=== PATIENT | female | born 1990 | race Two or more races ===

== ENCOUNTER 2016-08-29 12:10 | Emergency (ER) | payer OTHER ==
[2016-08-29 12:25] VITALS: BMI 31.9
--- NOTE | 2016-08-29 12:54 | PDOC ---
History of Present Illness - General History Source: Patient Exam Limitations: No Limitations - History of Present Illness Initial Comments: 08/29/16 13:03 The patient is a 26-year-old woman, [id number], currently 20 weeks , with a past medical history of asthma who presents to the emergency department for further evaluation of abdominal pain for the past few days. No trauma, fall. No new foods. She states that she has been experiencing intermittent left lower quadrant pain that radiates to her left lower back. Her pain is described as a pressure sensation with a rated 8/10 in severity. She also reports associated symptoms of nausea and one episode of vomiting. She does not provide any excasterbatng factors and states that she took Tylenol this morning, which did not provide much relief. She reports that her Ct Tech is Dr. Pat Lofton, who is currently away on maternity leave, therefore she is currently following up with Dr. Nell Rodriguez in the meantime. She has a scheduled appointment next month. She denies fever, chills, diaphoresis, generalized weakness. She denies chest pain, shortness of breath, cough She denies diarrhea, dysuria, hematuria, urinary frequency and urgency, flank pain, vaginal discharge/vaginal bleeding Allergies: Morphine Past Surgical History: Cholecystectomy Social History: No tobacco, ETOH and recreational drug use. Ct Tech: Dr. Pat Lofton <Brissa Lo - Last Filed: 08/29/16 13:58> - General History Source: Patient, Old Records Exam Limitations: No Limitations <Alethea Talbot - Last Filed: 08/29/16 16:39> - General Chief Complaint: Pain Stated Complaint: ABD PAIN Time Seen by Provider: 08/29/16 12:54 Past History <Brissa Lo - Last Filed: 08/29/16 13:58> - Past Medical History Asthma: Yes - Surgical History Cholecystectomy: Yes - Psycho/Social/Smoking Cessation Hx Suicidal Ideation: No Smoking History: Former smoker Have you smoked in the past 12 months: Yes If you are a former smoker, when did you quit?: 3 months ago Information on smoking cessation initiated: No <Alethea Talbot - Last Filed: 08/29/16 16:39> - Past Medical History Allergies/Adverse Reactions: Allergies Allergy/AdvReac Type Severity Reaction Status Date / Time morphine Allergy Verified 08/29/16 12:23 Home Medications: Ambulatory Orders NK [No Known Home Medication] 08/29/16 Review of Systems - Review of Systems Able to Perform ROS?: Yes Comments:: 08/29/16 13:03 GENERAL/CONSTITUTIONAL: No fever or chills. No weakness. HEAD, EYES, EARS, NOSE AND THROAT: No change in vision. No ear pain or discharge. No sore throat. CARDIOVASCULAR: No chest pain or shortness of breath. RESPIRATORY: No cough, wheezing, or hemoptysis. GASTROINTESTINAL: Yes: Abdominal Pain. Nausea. Vomiting x1. No diarrhea or constipation. GENITOURINARY: No dysuria, frequency, or change in urination. MUSCULOSKELETAL: No joint or muscle swelling or pain. No neck or back pain. SKIN: No rash NEUROLOGIC: No headache, vertigo, loss of consciousness, or change in strength/ sensation. ENDOCRINE: No increased thirst. No abnormal weight change. HEMATOLOGIC/LYMPHATIC: No anemia, easy bleeding, or history of blood clots. ALLERGIC/IMMUNOLOGIC: No hives or skin allergy. <Brissa Lo - Last Filed: 08/29/16 13:58> *Physical Exam - Vital Signs Last Vital Signs Temp Pulse Resp BP Pulse Ox 98.8 F 92 H 18 132/69 99 08/29/16 12:23 08/29/16 12:23 08/29/16 12:23 08/29/16 12:23 08/29/16 12:23 - Physical Exam Comments: 08/29/16 13:03 GENERAL: Awake, alert, and fully oriented, in no acute distress HEAD: No signs of trauma EYES: PERRLA, EOMI, sclera anicteric, conjunctiva clear ENT: Auricles normal inspection, hearing grossly normal, nares patent, oropharynx clear without exudates. Moist mucosa NECK: Normal ROM, supple, no lymphadenopathy, JVD, or masses LUNGS: Breath sounds equal, clear to auscultation bilaterally. No wheezes, and no crackles HEART: Regular rate and rhythm, normal S1 and S2, no murmurs, rubs or gallops ABDOMEN: Soft, there is some left lower quadrant tenderness without rebound or guarding. Normoactive bowel sounds. No masses /PELVIC: The cervix is mildly erythematous. The cervical os is closed. No cervical motion tenderness. No vaginal discharge cerival os is closed no cervical motion tendernss EXTREMITIES: Normal range of motion, no edema. No clubbing or cyanosis. No cords, erythema, or tenderness NEUROLOGICAL: Cranial nerves II through XII grossly intact. Normal speech, normal gait <Brissa Lo - Last Filed: 08/29/16 13:58> - Vital Signs Last Vital Signs Temp Pulse Resp BP Pulse Ox 98.8 F 92 H 18 132/69 99 08/29/16 12:23 08/29/16 12:23 08/29/16 12:23 08/29/16 12:23 08/29/16 12:23 <Alethea Talbot - Last Filed: 08/29/16 16:39> ED Treatment Course - LABORATORY CBC & Chemistry Diagram: 08/29/16 13:30 08/29/16 13:30 <Brissa Lo - Last Filed: 08/29/16 13:58> - LABORATORY CBC & Chemistry Diagram: 08/29/16 13:30 08/29/16 13:30 <Alethea Talbot - Last Filed: 08/29/16 16:39> Medical Decision Making - Medical Decision Making 08/29/16 15:00 26-year-old female approximately 20 weeks who presents to the emergency department with complaints of left lower quadrant pain radiating to the back. She has no vaginal bleeding or discharge. Focused bedside ultrasound shows a positive IUP with heart rate of 138. Differential diagnosis includes but is not limited to: UTI, round ligament pain, corpus luteum cyst. Plan: 1. Labs 2. Urine analysis 3. Tylenol for pain 4. Observe and reevaluate 08/29/16 16:38 Addendum: All labs were reviewed and are noted in the EMR. The patient is feeling improved. Will discharge home. I have informed the patient that she must follow-up with her Practice Advisor this week and return to the ED if her Sx persist , [id number] or new Sx arise. <Alethea Talbot - Last Filed: 08/29/16 16:39> *DC/Admit/Observation/Transfer - Attestations Scribe Attestion: 08/29/16 13:03 Documentation prepared by Brissa Lo, acting as medical insurance verifier for Alethea Talbot MD. <Brissa Lo - Last Filed: 08/29/16 13:58> - Discharge Dispostion Admit: No - Attestations Physician Attestion: 08/29/16 15:01 I, Dr. Alethea Talbot, attest that the scribes documentation that appears above has been prepared under my direction and personally reviewed by me in its entirety. I confirmed that the note above accurately reflects all work, treatment, procedures, and medical decision-making performed by me. <Alethea Talbot - Last Filed: 08/29/16 16:39> Diagnosis at time of Disposition: LLQ abdominal pain, , incidental - Discharge Dispostion Disposition: HOME Condition at time of disposition: Stable - Referrals Referrals: Kristina Valadez [Primary Care Provider] - - Patient Instructions Printed Discharge Instructions: DI for Abdominal Pain -- Early Additional Instructions: Follow-up with your wildlife policy professional physician this week. you may take tylenol as needed for the pain. Return to the ED if your symptoms persist, worsen or new symptoms arise.
[2016-08-29 14:17] LABS: BASOPHIL 0.2 % (0-2.0); EOSINOPHIL 1.2 % (0-4.5); MCH 30.1 pg (25.7-33.7); MCHC 33.8 g/dl (32.0-36.0); MEAN CELL VOLUME 89.1 fl (80-96); MEAN PLT VOLUME 10.1 fl (7.5-11.1); NEUTROPHILS 72.8 % (42.8-82.8); PLATELET COUNT 158 K/MM3 (134-434); RDW 13.3 % (11.6-15.6)
[2016-08-29 14:21] LABS: URINE APPEARANCE CLEAR; URINE BILIRUBIN NEGATIVE (NEGATIVE); URINE BLOOD NEGATIVE (NEGATIVE); URINE COLOR YELLOW; URINE GLUCOSE (UA) NEGATIVE (NEGATIVE); URINE KETONE TRACE (NEGATIVE); URINE LEUK ESTERASE NEGATIVE (NEGATIVE); URINE NITRITE NEGATIVE (NEGATIVE); URINE PROTEIN NEGATIVE (NEGATIVE); URINE UROBILINOGEN NEGATIVE E.U./dl (0.2-1.0)
[2016-08-29 16:34] LABS: ALBUMIN 3.3 g/dl (3.4-5.0); ALK PHOS 58 U/L (45-117); ANION GAP 12 (8-16); BILIRUBIN,TOTAL 0.2 mg/dL (0.2-1.0); CALCIUM 8.6 mg/dL (8.5-10.1); CO2 19 mmol/L (21-32); CREATININE 0.5 mg/dL (0.55-1.02); GLUCOSE,RANDOM 77 mg/dL (74-106); SGOT/AST 18 U/L (15-37); SGPT/ALT 32 U/L (12-78); TOT PROT 6.9 g/dl (6.4-8.2)
[2016-08-29 17:34] VITALS: BP 122/76; PULSE 111; TEMP 98.1
== END 2016-08-29 17:00 | disposition home or self-care (01) ==
LOC: JER 12:10
DX: O99.89 Other specified diseases and conditions complicating pregnancy, childbirth and the puerperium (principal); Z3A.20 20 weeks gestation of pregnancy
CPT/HCPCS: 36415; 80053; 81003; 83690; 84703; 85025; 99282-25

== ENCOUNTER 2016-12-29 08:34 | Inpatient (IN) | payer OTHER ==
[2016-12-29] MEDS ORDERED: OXYTOCIN 20 UNITS in 0.9% NS 1,000 ML IV SCH (08:45)
[2016-12-29] MEDS: ACETAMINOPHEN 325 MG TABLET (FP) PO PRN ×2 (09:25→14:38)
[2016-12-29] MEDS: IBUPROFEN 600 MG TABLET (FP) PO PRN ×2 (09:25→14:37)
[2016-12-29 10:24] VITALS: BMI 34.4
[2016-12-29] MEDS ORDERED: METHYLERGONOVINE MALEATE 0.2 MG/1 ML AMP IM PRN (10:29)
[2016-12-29] MEDS ORDERED: BENZOCAINE 28 GM HEMORRHOIDAL OINTMENT TP PRN (10:29)
[2016-12-29] MEDS ORDERED: WITCH HAZEL 50% (TUCKS) 40 PAD/JAR PAD TP PRN (10:29)
[2016-12-29] MEDS ORDERED: BENZOCAINE 20% 57 GM BOTTLE TP PRN (10:29)
[2016-12-29] MEDS ORDERED: BISACODYL 10 MG SUPP.RECT RC PRN (10:29)
--- NOTE | 2016-12-29 10:40 | HP ---
Past Medical History - Primary Care Physician PCP:: Nell Lanza - Admission Chief Complaint: 26 yrs , 37.1/7 weeks iup s/p delivery in [facility] at 8.35 am brought with placenta in utero. History of Present Illness: Onset LP since 12 mid night , strong since 7.00Am, she called for ambulence at 740am she dievered Baby Boy alive at 8.35 AM in the ambulence , [place] assigned in hosp 02/18 she divered placenta at 8.54 AM in L&D Care a 2, [facility] , pt non compliant last visited the clinic on 10/25/16 Gbs unknown work up : A Pos, Hbsag neg, Rpr nr, Rubella pos , Quantiferon neg , Hiv neg 1 hr GTT 99, gc/ct neg , Pap 06/2016 NILM pt was recommended aspirin 81 mg due to h/o preclempsia in past pregn, pt did not take. NT screen, Modified Sequential & Materna T-21 neg She was recommended inj [facility] for prevention of PTL , she refused MFM referral was done , growth sono noted Lingual cyst noed prentaly on us until last sono done on 12/15/16 35.1/weeks History Source: Patient, Medical Record Limitations to Obtaining History: No Limitations - Past Medical History Cardiovascular: No: HTN Pulmonary: Yes: Asthma (rx with inhaler prn) Gastrointestinal: Yes: Hemorrhoids. No: Constipation, GERD Hepatobiliary: Yes: Choledocholithiasis (cholecystectomy done) Renal/: No: UTI Reproductive: Yes: Other (h/o abn pap in past 06/2016 pap NILM) ...: 5 ...Para: 3 ...Term: 0 ...: 3 ...Spon : 1 ...Induced : 0 ...Multiple Gestation: 0 ...LMP: 04/13/16 ... Weeks Gestation by Dates: 37.1 ...EDC by Dates: 01/18/17 ...EDC by Sono: 01/18/17 Additional OB History: G1 03/15/2007 32 wks 4'14" Preclampsia , induced Ab [facility] G2 10/24/2008 32 wks 4'15" labor [facility] G3 11/24/2011 34 or 36 wks 7lbs h/o GDM [facility] G4 03/2012 Sp Ab Heme/Onc: Yes: Anemia Infectious Disease: Yes: STD's (h/o chlamydia during 1st pregn h/o pos HPV h/o trichomoniasis). No: HIV, Tuberculosis Endocrine: Yes: Other (h/o GDM during last pregn) - Past Surgical History Past Surgical History: Yes: Cholecystectomy Hx Myomectomy: No Hx Transabdominal Cerclage: No - Smoking History Smoking history: Former smoker Have you smoked in the past 12 months: Yes Aproximately how many cigarettes per day: 10 If you are a former smoker, when did you quit?: 06/2016 - Alcohol/Substance Use Hx Alcohol Use: No History of Substance Use: reports: None Home Medications - Allergies Allergies/Adverse Reactions: Allergies Allergy/AdvReac Type Severity Reaction Status Date / Time morphine Allergy Severe Verified 11/24/16 23:57 hot sauce Allergy Intermediate Itching Uncoded 12/29/16 12:21 - Home Medications Home Medications: Ambulatory Orders Vit/Iron Fumarate/FA [ Tablet] 1 tab PO DAILY 12/29/16 Physical Exam - Maternity Vital Signs: Vital Signs Temperature 98.6 F 12/29/16 08:34 Pulse Rate 66 12/29/16 08:34 Respiratory Rate 18 12/29/16 08:34 Blood Pressure 143/80 12/29/16 08:34 O2 Sat by Pulse Oximetry (%) Constitutional: Yes: Well Nourished, No Distress Eyes: Yes: WNL HENT: Yes: WNL, Normocephalic Neck: Yes: WNL, Trachea Midline Cardiovascular: Yes: WNL, Regular Rate and Rhythm Lungs: Clear to auscultation Breast(s): Yes: WNL - Abdominal Exam/OB Fundal Height: 18 (s/p delivery fetus & placent adelivered ) - Vaginal Exam/OB Vaginal Bleediing: Yes (pp bleeding moderate , blood cllots removed from uterus by MEU Perineum vagina & cervix , uterus intact.. No lacerations noted) - Physical Exam Musculoskeletal: Yes: WNL Extremities: Yes: WNL. No: Calf Tenderness Edema: Yes Edema: LLE: 1+, RLE: 1+ Integumentary: Yes: Tattoos Deep Tendon Reflex Grade: Normal +2 Psychiatric: Yes: WNL, Alert - Labs Lab Results: Laboratory Tests 12/29/16 12/29/16 12/29/16 10:25 10:25 10:25 WBC 11.4 H Hgb 13.4 Hct 40.9 Plt Count 127 L Neutrophils % 84.8 H Lymphocytes % 11.3 D INR 0.92 PTT (Actin FS) 24.0 L Sodium 140 Potassium 4.0 Chloride 109 H Creatinine 0.5 L Random Glucose 76 RPR Titer HIV 1&2 Antibody Screen HIV P24 Antigen 12/29/16 12/29/16 10:25 11:15 WBC Hgb Hct Plt Count Neutrophils % Lymphocytes % INR PTT (Actin FS) Sodium Potassium Chloride Creatinine Random Glucose RPR Titer Nonreactive HIV 1&2 Antibody Screen Negative HIV P24 Antigen Negative Problem List - Problems (1) 37 or more weeks gestation of Code(s): EFX9254 - (2) Normal vaginal delivery Code(s): O80 - ENCOUNTER FOR FULL-TERM UNCOMPLICATED DELIVERY Assessment/Plan 26 years , 37.1 weeks, GBS unknown , delivery in [facility] placenta delivey in L&D ebl witnessed 250 ml Plan pp care Inform nursery to show the to product evangelist
[2016-12-29 11:06] LABS: BASOPHIL 0.2 % (0-2.0); EOSINOPHIL 0.2 % (0-4.5); MCH 28.4 pg (25.7-33.7); MCHC 32.8 g/dl (32.0-36.0); MEAN CELL VOLUME 86.7 fl (80-96); MEAN PLT VOLUME 10.8 fl (7.5-11.1); NEUTROPHILS 84.8 % (42.8-82.8); PLATELET COUNT 127 K/MM3 (134-434); RDW 15.2 % (11.6-15.6); WHITE BLOOD COUNT 11.4 K/mm3 (4.0-10.0)
--- NOTE | 2016-12-29 11:17 | PN ---
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
[2016-12-29 11:25] LABS: INR 0.92 (0.82-1.09); PROTHROMBIN TIME (PATIENT) 10.1 SEC (9.98-11.88)
[2016-12-29 11:27] LABS: ANION GAP 10 (8-16); CALCIUM 9.1 mg/dL (8.5-10.1); CO2 21 mmol/L (21-32); CREATININE 0.5 mg/dL (0.55-1.02); GLUCOSE,RANDOM 76 mg/dL (74-106)
[2016-12-29 12:35] LABS: HIV 1 & 2 AB NEGATIVE; HIV 1 AGp24 NEGATIVE
[2016-12-29 13:41] LABS: URINE MARIJUANA THC NEGATIVE ng/ml (CUTOFF=50)
[2016-12-29] MEDS ORDERED: OXYCODONE/APAP 5/325MG COMBO TABLET PO PRN (16:01)
[2016-12-29] MEDS ORDERED: IBUPROFEN 600 MG TABLET (FP) PO ONE (16:30)
[2016-12-29] MEDS: FERROUS SO4 325 MG TABLET (FP) PO SCH (17:04)
[2016-12-29] MEDS ORDERED: ACETAMINOPHEN 325 MG TABLET (FP) PO ONE (17:45)
[2016-12-30] MEDS: ACETAMINOPHEN 325 MG TABLET (FP) PO PRN ×2 (06:31→22:00)
[2016-12-30] MEDS: IBUPROFEN 600 MG TABLET (FP) PO PRN ×3 (06:32→21:59)
[2016-12-30 08:01] LABS: BASOPHIL 0.3 % (0-2.0); EOSINOPHIL 1.4 % (0-4.5); MCHC 33.6 g/dl (32.0-36.0); MEAN CELL VOLUME 86.6 fl (80-96); MEAN PLT VOLUME 10.9 fl (7.5-11.1); NEUTROPHILS 63.8 % (42.8-82.8); PLATELET COUNT 112 K/MM3 (134-434); RDW 15.1 % (11.6-15.6); WHITE BLOOD COUNT 7.7 K/mm3 (4.0-10.0)
--- NOTE | 2016-12-30 08:20 | PN ---
Progress Note (short form) - Note Progress Note: ppd 1 c/o cramps ,no excess vaginal bleeding CBC, BMP 12/30/16 06:00 12/29/16 10:25 Last Vital Signs Temp Pulse Resp BP Pulse Ox 98 F 65 20 111/58 100 12/30/16 07:53 12/30/16 07:53 12/30/16 07:53 12/30/16 07:53 12/29/16 09:55 abdomen soft, non tender , no cva uterus firm, non tender lochia mild plan ambulate,,d/c home in am
[2016-12-30] MEDS: FERROUS SO4 325 MG TABLET (FP) PO SCH ×2 (08:31→17:12)
[2016-12-30] MEDS: PRENATAL VITAMINS W/ FOLIC ACID TABLET (FP) PO SCH (09:32)
[2016-12-30] MEDS ORDERED: DIPHTH,PERTUSS(ACELL),TET 0.5 ML DISP.SYRIN IM ONE (14:00)
[2016-12-30] MEDS ORDERED: PNEUMOC 13-VAL CONJ-DIP CRM/PF 0.5 ML DISP.SYRIN IM ONE (14:00)
--- NOTE | 2016-12-30 18:10 | DS ---
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 bottle feeding) Musculoskeletal: Yes: WNL Extremities: Yes: WNL Edema: Yes Edema: LLE: Trace, RLE: Trace Integumentary: Yes: WNL, Tattoos Neurological: Yes: WNL ...Motor Strength: WNL Psychiatric: Yes: WNL, Alert, Oriented Labs: CBC, BMP 12/30/16 06:00 12/29/16 10:25 Laboratory Tests 12/29/16 12:30 Opiates Screen Negative Methadone Screen Negative Barbiturate Screen Negative Phencyclidine Screen Negative Ur Amphetamines Screen Negative MDMA (Ecstasy) Screen Negative Benzodiazepines Screen Negative Cocaine Screen Negative U Marijuana (THC) Screen Negative Delivery - Delivery Vaginal Delivery: No Problems, Spontaneous (delivery of fetus in ambulence by EMT) Type of Anesthesia: None Episiotomy/Laceration: None EBL (cc): 300 Delivery, Single - Stages of Labor Date 1st Stage Initiatied: 12/29/16 Time 1st Stage Initiated: 00:00 Date of Delivery: 12/29/16 Time of Delivery: 08:35 Time Placenta Delivered: 08:54 Placenta: Yes: Spontaneous, Uterine Exploration - Condition of Infant 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[employer] Services Present: No Infant Gender: Male Weight: 5 lb 15 oz Total Hours ROM (Hrs/Mins): 9 minutes - Home Delivery on Admit Total Score: 10 1 Minute Total Score: 9 (given by EMT) 5 Minutes Total Score: 9 (given by EMT, i) - Feeding Plan Initial Plan: Elected not to breastfeed exclusively throughout hospitalization Remarks - Remarks Remarks: 26 yrs , 37.1 weeks s/p delivery in ambulance , brought in l&D with placenta in uterus delivered in L&D GBS unknown pt noncompliant pp course unevebtful Discharge Summary Reason For Visit: LABOR ADMIT Current Active Problems 37 or more weeks gestation of (Acute) Normal vaginal delivery (Acute) Condition: Stable - Instructions Diet, Activity, Other Instructions: Post Instructions DIET: Continue good diet high in protein, calcium, and iron rich foods. Drink at least eight (8) glasses of water daily in addition to other fluids. ct Regular diet MEDICATIONS: Continue vitamins and iron as previously directed. Motrin and Tylenol may be taken for minor discomfort. ACTIVITY: Mild to moderate exercise may be started in two (2) weeks. Take frequent rest periods. Resume normal activity after six (6) week check up. WOUND CARE OF OPERATIVE SITE: Continue use of perineal bottle until vaginal discharge stops. Keep area clean. Shower daily. Keep abdominal wound dry. Report any drainage or redness to physician. Tub baths, tampons and douches are not permitted for [address] Breast feeding & or Bottle feeding BREAST CARE: (For those that are not breast feeding): If engorgement occurs: Wear tight fitting bra. Take Tylenol or Motrin for pain. Apply cold packs (ice in bags to each breast ) FAMILY PLANNING: There are many control alternatives to pursue and they should be discussed at your first office visit. You may resume sexual activity after your six (6) week check up. (Remember, breast feeding is not a contraceptive) NEXT PHYSICIAN APPOINTMENT: Be certain to call for a six (6) week appointment, unless otherwise directed. Call Clinic or got to Emergency Dept if you have any of the following: Heavy vaginal bleeding Painful urination Leg pain Unusual odor noted to vaginal bleeding High fever Red streaking noted on breast Referrals: Nell Lanza MD [Staff Physician] - Disposition: HOME - Home Medications Comprehensive Discharge Medication List: Ambulatory Orders Acetaminophen [Tylenol .Regular Strength -] 650 mg PO Q3H PRN #0 tablet Ferrous Sulfate [Feosol] 325 mg PO BIDWM tab 12/29/16 Ibuprofen [Motrin -] 200 mg PO Q4H PRN #0 tablet 12/29/16 Vit/Iron Fumarate/FA [ Tablet] 1 tab PO DAILY 12/29/16 Vitamins (Sjr) - 1 tab PO DAILY tablet 12/29/16
[2016-12-30] MEDS ORDERED: SENNOSIDES/DOCUSATE COMBO (SENNA PLUS) TABLET (UD) PO PRN (22:00)
[2016-12-31] MEDS: IBUPROFEN 600 MG TABLET (FP) PO PRN ×2 (03:46→08:14)
[2016-12-31] MEDS: ACETAMINOPHEN 325 MG TABLET (FP) PO PRN ×2 (03:47→08:14)
[2016-12-31] MEDS: FERROUS SO4 325 MG TABLET (FP) PO SCH (08:13)
[2016-12-31] MEDS: PRENATAL VITAMINS W/ FOLIC ACID TABLET (FP) PO SCH (09:23)
[2016-12-31 12:23] VITALS: BP 110/70; PULSE 71; TEMP 98.2
== END 2016-12-31 11:40 | disposition home or self-care (01) | DRG 560 ==
LOC: JLDR 08:34 → J3W 12:37
PROVIDERS: ADMIT Obstetrics & Gynecology; ATTEND Obstetrics & Gynecology
PROC: 10E0XZZ Delivery of Products of Conception, External Approach (ICD-10-PCS; principal; 2016-12-29)
DX: Z39.0 Encounter for care and examination of mother immediately after delivery (principal)
CPT/HCPCS: 36415; 59409; 80048; 80307; 85025; 85610; 85730; 86593; 86850; 86900; 86901; 87389; 90670; 90715

== ENCOUNTER 2017-04-09 15:59 | Emergency (ER) | payer OTHER ==
[2017-04-09 16:30] VITALS: BP 116/75; PULSE 79; TEMP 98.4; BMI 31.6
[2017-04-09] MEDS ORDERED: morphine CARPU-JECT 4 MG/1 ML DISP.SYRIN IVPUSH ONE (16:55)
[2017-04-09] MEDS ORDERED: morphine CARPU-JECT 8 MG/1 ML DISP.SYRIN ONE (17:18)
[2017-04-09 17:28] LABS: BASOPHIL 0.6 % (0-2.0); EOSINOPHIL 3.1 % (0-4.5); MCH 29.2 pg (25.7-33.7); MCHC 33.3 g/dl (32.0-36.0); MEAN CELL VOLUME 87.5 fl (80-96); MEAN PLT VOLUME 10.1 fl (7.5-11.1); NEUTROPHILS 70.8 % (42.8-82.8); PLATELET COUNT 213 K/MM3 (134-434); RDW 13.8 % (11.6-15.6); WHITE BLOOD COUNT 8.3 K/mm3 (4.0-10.0)
[2017-04-09 17:51] LABS: ALBUMIN 3.5 g/dl (3.4-5.0); ALK PHOS 65 U/L (45-117); ANION GAP 5 (8-16); BILIRUBIN,TOTAL 0.4 mg/dL (0.2-1.0); CALCIUM 8.8 mg/dL (8.5-10.1); CO2 28 mmol/L (21-32); CREATININE 0.9 mg/dL (0.55-1.02); GLUCOSE,RANDOM 83 mg/dL (74-106); SGPT/ALT 33 U/L (12-78); TOT PROT 7.1 g/dl (6.4-8.2)
[2017-04-09 17:54] LABS: SGOT/AST 27 U/L (15-37)
--- NOTE | 2017-04-09 18:19 | PDOC ---
History of Present Illness - General Chief Complaint: Injury Stated Complaint: FALL Time Seen by Provider: 04/09/17 16:29 - History of Present Illness Initial Comments: 04/09/17 18:14 The patient is a 27 year old female with a history of asthma who presents for evaluation of right hip pain following a fall down stairs. The patient reports that she slipped on steps outside her apartment and fell down 14 steps with immediate pain to her right hip and inability to ambulate at the scene. She reports head trauma, but denies any LOC or headache currently. She reports only severe pain in her right hip with burning radiation down her right leg. She denies fevers, chills, SOB, chest pain, abdominal pain, or changes with urination or bowel movements. She denies any numbness, weakness, or tingling in her extremities. Past History - Past Medical History Allergies/Adverse Reactions: Allergies Allergy/AdvReac Type Severity Reaction Status Date / Time morphine Allergy Severe Verified 04/09/17 16:07 hot sauce Allergy Intermediate Itching Uncoded 04/09/17 16:07 Home Medications: Ambulatory Orders Albuterol Sulfate Inhaler - [Ventolin Hfa Inhaler -] 1 - 2 inh PO Q4H 04/09/17 Ibuprofen 600 mg PO QID PRN #24 tablet MDD 4 Tab 04/09/17 Asthma: Yes Cancer: No Cardiac Disorders: No Diabetes: No HTN: No Seizures: No Thyroid Disease: No - Surgical History Cholecystectomy: Yes - Reproductive History (#): 4 Para: 3 - Suicide/Smoking/Psychosocial Hx Smoking History: Former smoker Have you smoked in the past 12 months: Yes Number of Cigarettes Smoked Daily: 10 If you are a former smoker, when did you quit?: 06/2016 Information on smoking cessation initiated: No Hx Alcohol Use: No Drug/Substance Use Hx: No Substance Use Type: None Hx Substance Use Treatment: No Review of Systems - Review of Systems Comments:: 04/09/17 18:17 Constitutional: No fevers, chills, fatigue, malaise HEENT: No Rhinorrhea, nasal congestion, Cardiovascular: No chest pain, syncope, palpitations, lightheadedness Respiratory: No Cough, SOB, Hemoptysis, Gastrointestinal: No Abdominal pain, Nausea, Vomiting, Constipation, Diarrhea, Genitourinary: No Dysuria, Frequency, Urgency, Hesitancy, Hematuria, Flank pain Musculoskeletal: Right hip pain. No Myalgia, arthralgia Skin: No rashes, bruising, pallor Neurologic: No Headache, Dizziness, Numbness, Weakness, or Tingling *Physical Exam - Vital Signs Last Vital Signs Temp Pulse Resp BP Pulse Ox 98.4 F 79 18 116/75 100 04/09/17 16:07 04/09/17 16:07 04/09/17 16:07 04/09/17 16:07 04/09/17 16:07 - Physical Exam Comments: 04/09/17 18:18 General Appearance: Nourished. No Apparent Distress HEENT: EOMI, IQ. No Pharyngeal Erythema, Tonsillar Exudate, Tonsillar Erythema Neck: No Cervical Lymphadenopathy Respiratory/Chest: Lungs Clear, Normal Breath Sounds. No Crackles, Rales, Rhonchi, Wheezing Cardiovascular: Regular Rhythm, Regular Rate. No Murmur, Gallops, Rubs Gastrointestinal/Abdominal: Normal Bowel Sounds, Soft. No Guarding, Rebound, Tenderness Musculoskeletal: No CVA Tenderness Extremity: Tenderness to palpation of the right hip with possible deformity. Sensation to light touch and temperature intact distal to the injury. 2+ DP pulses bilaterally. Reduced range of motion or the right hip and leg secondary to pain. Normal Capillary Refill Integumentary: Normal Color, Dry, Warm Neurologic: research environmental scientist II-XII NML intact, Fully Oriented, Alert, Normal Mood/Affect, Normal Response, ED Treatment Course - LABORATORY CBC & Chemistry Diagram: 04/09/17 17:10 04/09/17 17:10 - ADDITIONAL ORDERS Additional order review: Laboratory Results 04/09/17 04/09/17 17:10 17:10 Sodium 138 Potassium 3.9 Chloride 105 Carbon Dioxide 28 D Anion Gap 5 L BUN 9 D Creatinine 0.9 D Creat Clearance w eGFR > 60 Random Glucose 83 Calcium 8.8 Total Bilirubin 0.4 D AST 27 D ALT 33 Alkaline Phosphatase 65 Total Protein 7.1 Albumin 3.5 Serum , Qual Negative 04/09/17 17:10 RBC 4.29 MCV 87.5 MCHC 33.3 RDW 13.8 MPV 10.1 Neutrophils % 70.8 Lymphocytes % 18.5 D Monocytes % 7.0 Eosinophils % 3.1 D Basophils % 0.6 - RADIOLOGY Radiology Studies Ordered: Category Date Time Status HIP & PELVIS-RIGHT [RAD] Stat Radiology 10/29/17 16:57 Ordered - Medications Given in the ED: ED Medications Discontinued Medications Generic Name Dose Route Start Last Admin Trade Name Fredrickq PRN Reason Stop Dose Admin Morphine Sulfate 4 mg 04/09/17 16:55 04/09/17 17:15 Morphine Injection - IVPUSH 04/09/17 16:56 4 mg ONCE ONE Administration Medical Decision Making - Medical Decision Making 04/09/17 18:19 The patient is a 27 year old female with a history of asthma who presents for evaluation of right hip pain following a fall down stairs. Differential includes but is not limited to: Dislocation, fracture, contusion, ligamentous or tendinous injury. Given the patient's severe pain and reduced range of motion, we are concerned for a right hip dislocation. We will obtain plain films to evaluate further. We will also send a cbc, cmp, and serum . We will treat her pain with morphine and continue to monitor and reassess. 04/09/17 18:57 cbc, cmp, serum are negative and unremarkable. Plain films do not demonstrate any signs of acute fracture or dislocation as preliminarily read by ED physician pending official radiology read in the morning. We will treat the patient's pain with toradol and reassess. The patient's pain is likely due to a bony contusion. *DC/Admit/Observation/Transfer Diagnosis at time of Disposition: Sprain of right hip Qualifiers: Encounter type: initial encounter Qualified Code(s): S73.101A - Unspecified sprain of right hip, initial encounter - Discharge Dispostion Disposition: HOME Condition at time of disposition: Good - Prescriptions Prescriptions: Ibuprofen 600 mg PO QID PRN #24 tablet MDD 4 Tab PRN Reason: Moderate Pain - Referrals Referrals: Kristina Valadez [Primary Care Provider] - - Patient Instructions Printed Discharge Instructions: How to Prevent Falls Additional Instructions: Please return to ED if you experience nausea/vomiting, headache, fatigue, lightheadedness, vision changes. Please take pain medication as prescribed. Follow up with Primary Care Provider if pain persists for weeks. - Post Discharge Activity Forms/Work/School Notes: Back to Work
--- NOTE | 2017-04-09 18:51 | PDOC ---
Attending Attestation - Resident Resident Name: Marvin Dockeryel - ED Attending Attestation I have performed the following: I have examined & evaluated the patient, The case was reviewed & discussed with the resident, I agree w/resident's findings & plan, Exceptions are as noted - HPI HPI: 04/09/17 18:51 27 yo female fell down 14 steps hitting her rt hip and back. No LOC. Pt is alert and conversant, - Physicial Exam PE: 04/09/17 18:52 WNWD 27 yo female BIBA with rt hip pain s/p falling and sliding sown 14 steps at home HEENT no scalp laceration,no scalp hematoma ,eyes zack eomi, throat no exudates,nose no rhinorrhea neck no cervical vertebral tenderness lungs cta b/l cvs [id number] abd no rebound,no guarding no splenic tenderness rt hip tendereness, no laceration,no abrasions neuro axox3,no focal neuro deficits 04/09/17 19:07 - Medical Decision Making 04/10/17 03:31 xrays negative for fracture or dislocation,pt ambulatory and discharged home
[2017-04-09] MEDS ORDERED: KETOROLAC TROMETHAMINE 30 MG/1 ML VIAL IVPUSH ONE (18:56)
[2017-04-09] MEDS ORDERED: KETOROLAC TROMETHAMINE 30 MG/1 ML VIAL ONE (19:22)
--- NOTE | 2017-04-09 20:39 | PDOC ---
*Physical Exam - Vital Signs Last Vital Signs Temp Pulse Resp BP Pulse Ox 98.4 F 79 18 116/75 100 04/09/17 16:07 04/09/17 16:07 04/09/17 16:07 04/09/17 16:07 04/09/17 16:07 - Physical Exam Comments: 04/09/17 20:42 General Appearance: Nourished. No Apparent Distress HEENT: EOMI, QI. No Pharyngeal Erythema, Tonsillar Exudate, Tonsillar Erythema Neck: No Cervical Lymphadenopathy Respiratory/Chest: Lungs Clear, Normal Breath Sounds. No Crackles, Rales, Rhonchi, Wheezing Cardiovascular: Regular Rhythm, Regular Rate. No Murmur, Gallops, Rubs Gastrointestinal/Abdominal: Normal Bowel Sounds, Soft. No Guarding, Rebound, Tenderness Musculoskeletal: No CVA Tenderness Extremity: Right hip ttp. No bony deformity. Sensation to light touch and temperature intact distal to the injury. 2+ dorsal pedal and posterior tibial pulses intact and symmetri bilaterally. Reduced range of motion or the right hip and leg secondary to pain. 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 NML intact, Fully Oriented, Alert, Normal Mood/Affect, Normal Response, ED Treatment Course - LABORATORY CBC & Chemistry Diagram: 04/09/17 17:10 04/09/17 17:10 - ADDITIONAL ORDERS Additional order review: Laboratory Results 04/09/17 04/09/17 17:10 17:10 Sodium 138 Potassium 3.9 Chloride 105 Carbon Dioxide 28 D Anion Gap 5 L BUN 9 D Creatinine 0.9 D Creat Clearance w eGFR > 60 Random Glucose 83 Calcium 8.8 Total Bilirubin 0.4 D AST 27 D ALT 33 Alkaline Phosphatase 65 Total Protein 7.1 Albumin 3.5 Serum , Qual Negative 04/09/17 17:10 RBC 4.29 MCV 87.5 MCHC 33.3 RDW 13.8 MPV 10.1 Neutrophils % 70.8 Lymphocytes % 18.5 D Monocytes % 7.0 Eosinophils % 3.1 D Basophils % 0.6 - Medications Given in the ED: ED Medications Discontinued Medications Generic Name Dose Route Start Last Admin Trade Name Freq PRN Reason Stop Dose Admin Ketorolac Tromethamine 30 mg 04/09/17 18:56 04/09/17 19:29 Toradol Injection - IVPUSH 04/09/17 18:57 30 mg ONCE ONE Administration Morphine Sulfate 4 mg 04/09/17 16:55 04/09/17 17:15 Morphine Injection - IVPUSH 04/09/17 16:56 4 mg ONCE ONE Administration Medical Decision Making - Medical Decision Making 04/09/17 20:39 Received handoff from 27 yo F with h/o of asthma who with R hip pain following mechanical fall down stairs. She now endorses severe pain in right hip with burning radiation down right leg. No other associated symptoms. Physical exam unremarkable with no evidence of neurovascular compromise or bony deformity . ED Course: 04/09/17 20:43 R Hip and Pelvis RAD: No acute fracture or dislocation Patient given Morphine 8 mg and Toradol 30 mg Reasses Patient ambulating w/out difficulty and stable D/C. *DC/Admit/Observation/Transfer Diagnosis at time of Disposition: Sprain of right hip Qualifiers: Encounter type: initial encounter Qualified Code(s): S73.101A - Unspecified sprain of right hip, initial encounter; S73.101A - Unspecified sprain of right hip, initial encounter - Discharge Dispostion Disposition: HOME Condition at time of disposition: Stable Admit: No - Prescriptions Prescriptions: Ibuprofen 600 mg PO QID PRN #24 tablet MDD 4 Tab PRN Reason: Moderate Pain - Patient Instructions Printed Discharge Instructions: How to Prevent Falls Additional Instructions: Please return to ED if you experience nausea/vomiting, headache, fatigue, lightheadedness, vision changes. Please take pain medication as prescribed. Follow up with Primary Care Provider if pain persists for weeks. - Post Discharge Activity Forms/Work/School Notes: Back to Work - Attestations Physician Attestion: 04/09/17 20:49 I attest to the information provided in this note.
== END 2017-04-09 20:57 | disposition home or self-care (01) ==
LOC: JER 15:59
PROC: 3E033NZ Introduction of Analgesics, Hypnotics, Sedatives into Peripheral Vein, Percutaneous Approach (ICD-10-PCS; principal; 2017-04-09)
PROC: 3E0333Z Introduction of Anti-inflammatory into Peripheral Vein, Percutaneous Approach (ICD-10-PCS; 2017-04-09)
DX: S73.191A Other sprain of right hip, initial encounter (principal); W10.8XXA Fall (on) (from) other stairs and steps, initial encounter; Y93.89 Activity, other specified; Y92.038 Other place in apartment as the place of occurrence of the external cause; J45.909 Unspecified asthma, uncomplicated; Z87.891 Personal history of nicotine dependence
CPT/HCPCS: 36415; 73523-TC; 80053; 84703; 85025; 96374; 96375; 99283-25

== ENCOUNTER 2019-01-10 23:48 | Inpatient (IN) | payer OTHER | END 2019-01-12 14:37 | disposition home or self-care (01) | LOC: JER 23:48 → JERBED 01-11 05:45 → J5S 01-11 10:55 ==

== ENCOUNTER 2019-07-15 12:20 | Emergency (ER) | payer OTHER ==
[2019-07-15 12:28] VITALS: BP 100/66; PULSE 70; TEMP 98.7; BMI 29.1
--- NOTE | 2019-07-15 13:57 | PDOC ---
History of Present Illness - General Chief Complaint: Cold Symptoms Stated Complaint: Cold Symptoms Time Seen by Provider: 07/15/19 13:48 - History of Present Illness Initial Comments: 07/15/19 13:53 30-year-old female without comorbidities presents for evaluation of flulike symptoms and a positive flu contact at home x1 day Past History - Past Medical History Allergies/Adverse Reactions: Allergies Allergy/AdvReac Type Severity Reaction Status Date / Time morphine Allergy Severe Verified 07/15/19 12:25 hot sauce Allergy Intermediate Itching Uncoded 07/15/19 12:25 Home Medications: Ambulatory Orders Albuterol Sulfate Inhaler - [Ventolin HFA Inhaler -] 1 - 2 inh PO Q4H 04/09/17 Doxycycline Hyclate 100 mg PO BID 20 Days #40 capsule 01/12/19 Sumatriptan Succinate [Imitrex -] 100 mg PO TID PRN #90 tablet 01/12/19 Topiramate [Topamax -] 25 mg PO BID #60 tablet 01/12/19 Oseltamivir Phosphate [Tamiflu] 75 mg PO BID #10 capsule 07/15/19 Anemia: Yes Asthma: Yes Cancer: No Cardiac Disorders: No CVA: No COPD: No CHF: No Dementia: No Diabetes: No GI Disorders: No Disorders: No HTN: No Hypercholesterolemia: No Liver Disease: No Seizures: No Thyroid Disease: No - Surgical History Abdominal Surgery: No Appendectomy: No Cardiac Surgery: No Cholecystectomy: Yes Lung Surgery: No Neurologic Surgery: No Orthopedic Surgery: No - Reproductive History (#): 4 Para: 3 - Psycho Social/Smoking Cessation Hx Smoking History: Current every day smoker Have you smoked in the past 12 months: Yes Number of Cigarettes Smoked Daily: 10 If you are a former smoker, when did you quit?: 06/2016 Information on smoking cessation initiated: No 'Breaking Loose' booklet given: 01/11/19 Hx Alcohol Use: No Drug/Substance Use Hx: No Substance Use Type: None Hx Substance Use Treatment: No Review of Systems - Review of Systems Constitutional: Yes: Fever ABD/GI: Yes: Diarrhea, Nausea, Vomiting *Physical Exam - Vital Signs Last Vital Signs Temp Pulse Resp BP Pulse Ox 98.7 F 70 16 100/66 100 07/15/19 12:25 07/15/19 12:25 07/15/19 12:25 07/15/19 12:25 07/15/19 12:25 - Physical Exam 07/15/19 13:53 GENERAL: The patient is awake, alert, and fully oriented, in no acute distress. HEAD: Normal with no signs of trauma. EYES: sclera anicteric, conjunctiva clear. ENT: Ears normal tympanic membranes normal oropharynx clear uvula midline NECK: Normal range of motion LUNGS: Breath sounds equal, clear to auscultation bilaterally. No wheezes, and no crackles. HEART: S1 and S2 without murmur, rub or gallop. ABDOMEN: Soft, nontender, normoactive bowel sounds. No guarding, no rebound. No masses. EXTREMITIES: Normal range of motion, no edema. No clubbing or cyanosis. No cords, erythema, or tenderness. NEUROLOGICAL: Cranial nerves II through XII grossly intact. PSYCH: Normal mood, normal affect. SKIN: Warm, Dry, normal turgor, no rashes or lesions noted. Medical Decision Making - Medical Decision Making 07/15/19 13:54 We will treat based on positive sick contact Discharge - Discharge Information Problems reviewed: Yes Clinical Impression/Diagnosis: Influenza-like illness Condition: Stable Disposition: HOME - Admission No - Additional Discharge Information Prescriptions: Oseltamivir Phosphate [Tamiflu] 75 mg PO BID #10 capsule - Follow up/Referral Referrals: Carmela William MD [Staff Physician] - - Patient Discharge Instructions Additional Instructions: Tylenol Motrin as directed for fever and body aches. Return to the emergency room for worsening symptoms and without fail follow-up with your primary care physician in 1 to 2 days for further evaluation and treatment options. Please take the Tamiflu as directed. - Post Discharge Activity
== END 2019-07-15 14:02 | disposition home or self-care (01) ==
LOC: JERFT 12:20
DX: J11.2 Influenza due to unidentified influenza virus with gastrointestinal manifestations (principal); J45.909 Unspecified asthma, uncomplicated; Z88.8 Allergy status to other drugs, medicaments and biological substances; Z91.018 Allergy to other foods
CPT/HCPCS: 99281-25

== ENCOUNTER 2020-10-23 22:23 | Emergency (ER) | payer OTHER ==
[2020-10-23 22:40] VITALS: BP 107/60; PULSE 92; TEMP 98; BMI 29.1
[2020-10-23] MEDS ORDERED: ACETAMINOPHEN 500 MG TABLET (FP) PO ONE (23:24)
[2020-10-23] MEDS ORDERED: ACETAMINOPHEN 325 MG TABLET (FP) ONE (23:26)
== END 2020-10-24 01:21 | disposition home or self-care (01) ==
LOC: JER 22:23
DX: M25.571 Pain in right ankle and joints of right foot (principal)
CPT/HCPCS: 73610-TC-RT-FY; 73630-TC-RT-FY; 73700-TC-RT; 99284-25